=== PATIENT | female | born 2000 | race Caucasian/White ===

== ENCOUNTER 2018-08-04 19:53 | Emergency (ER) | payer OTHER ==
--- NOTE | 2018-08-04 21:11 | EDPHY ---
H & P Stated Complaint: Swollen glands and eye pain sent from Time Seen by Provider: 08/04/18 20:55 HPI/ROS: CHIEF COMPLAINT: Swollen lymph nodes HISTORY OF PRESENT ILLNESS: 18-year-old female presents with swollen lymph nodes. 1st noticed enlarged lymph nodes left side of neck 3 days ago. The lymph nodes have increased in size and in number over the past 2 days. Associated with fatigue and night sweats. Had a low-grade fever of 99.5 at urgent care just prior to arrival. Has eye pain with extreme lateral/medial gaze. No recent URI, cough, cat scratch or other swollen lymph nodes. REVIEW OF SYSTEMS: complete 10 point ROS reviewed and is negative except for the noted elements in the HPI - Personal History LMP (Females 10-55): 15-21 Days Ago Current Tetanus/Diphtheria Vaccine: Yes Current Tetanus Diphtheria and Acellular Pertussis (TDAP): Yes - Medical/Surgical History Hx Asthma: No Hx Chronic Respiratory Disease: No Hx Diabetes: No Hx Cardiac Disease: No Hx Renal Disease: No Hx Cirrhosis: No Hx Alcoholism: No Hx HIV/AIDS: No Hx Splenectomy or Spleen Trauma: No Other PMH: denies - Social History Smoking Status: Current every day smoker Alcohol Use: Sober Drug Use: None - Physical Exam Exam: General Appearance: Alert, pleasant, well-appearing Eyes: Pupils equal and round, EOMI, no conjunctival pallor or injection, no periorbital swelling or erythema ENT, Mouth: Mucous membranes moist, TMs normal, no pharyngeal erythema Neck: Left posterior adenopathy, multiple nodes greater than 1cm Respiratory: Lungs are clear to auscultation Cardiovascular: Regular rate and rhythm Gastrointestinal: Abdomen is soft and nontender Neurological: A&O, nonfocal, normal gait Skin: Warm and dry, no rash Extremities: No axillary adenopathy, nontender, no swelling Psychiatric: Mood and affect normal Constitutional: Initial Vital Signs Temperature (C) 36.5 C 08/04/18 19:55 Heart Rate 98 08/04/18 19:55 Respiratory Rate 16 08/04/18 19:55 Blood Pressure 128/96 H 08/04/18 19:55 O2 Sat (%) 96 08/04/18 19:55 O2 Delivery Mode Room Air Allergies/Adverse Reactions: bacitracin [From Neosporin ([id number])] Allergy (Verified 08/04/18 19:58) neomycin [From Neosporin ([id number])] Allergy (Verified 08/04/18 19:58) nickel Allergy (Verified 08/04/18 19:58) polymyxin B [From Neosporin ([id number])] Allergy (Verified 08/04/18 19:58) Home Medications: Medication Instructions Recorded Lexapro 08/04/18 Medical Decision Making - Diagnostics Imaging Results: CXR: NAD Imaging: I viewed and interpreted images myself ED Course/Re-evaluation: This pt presents with painless cervical adenopathy, with some nodes greater than 1cm in size. Likely viral, given low grade fever CLIENT SUPPORT ADMINISTRATOR, though no URI sx and remainder of PE is normal, no other adenopathy present. Labs/CXR fortunately normal. Pt also has eye pain with extreme gaze, similar to prior sinusitis sx (which resolved with abx). Neuro exam is normal and no congestion or tenderness over the sinuses. I do not feel that abx or neuroimaging are indicated. If adenopathy persists/worsens, pt will likely need biopsy. d/w pt , aware of next steps. Will f/u PCP. Differential Diagnosis: includes though not limited to infectious etiology such as URI, otitis media, mono, cat scratch fever; malignancy such as lymphoma - Data Points Laboratory Results: Laboratory Results 08/04/18 21:26 08/04/18 21:26 Departure - Departure Disposition: Home, Routine, Self-Care Clinical Impression: Posterior cervical adenopathy Condition: Good Instructions: Lymphadenopathy (ED) Additional Instructions: Return for worsening symptoms or any concerns. Referrals: Iveth Chavez [employer]ER [Primary Care Provider] - As per Instructions (Followup with your PCP in 2-3 days. If the swollen lymph nodes persist, you may need a biopsy of the lymph nodes.)
[2018-08-04 21:37] LABS: PLATELET COUNT 234 10^3/uL (150-400)
[2018-08-04 22:47] VITALS: BP 117/70
== END 2018-08-04 22:47 | disposition home or self-care (01) ==
DX: R59.1 Generalized enlarged lymph nodes (principal)